=== PATIENT | female | born 1955 | race Caucasian/White ===

== ENCOUNTER 2018-10-21 11:01 | Day surgery (SDC) | payer OTHER ==
[~2018-10-21] VITALS: Ht 170.2 cm; Wt 72.9 kg
[~2018-10-21 11:01] MED LIST: AMLO5; AMLO5 PO; Aspir 8181 MG; Aspirin EC81 MG PO; CHOL10002; FISH OIL + D31 EACH; FISH OIL 1,2001 EACH PO; Hair, Skin & N1 EACH; LOSA50 PO; LOSARTAN POTAS100 MG PO; LOVA40; LOVA40 PO; MULTI VITAMIN1 EACH PO; VITAMIN D31000 UNIT PO
== END 2018-10-21 13:05 | disposition home or self-care (01) ==
LOC: ORSCSDS 11:01
PROVIDERS: Internal Medicine Gastroenterology
PROC: 0DBK8ZX Excision of Ascending Colon, Via Natural or Artificial Opening Endoscopic, Diagnostic (ICD-10-PCS; principal; 2018-10-21 12:15)
DX: Z12.11 Encounter for screening for malignant neoplasm of colon (principal); Z80.0 Family history of malignant neoplasm of digestive organs; D12.2 Benign neoplasm of ascending colon; K57.30 Diverticulosis of large intestine without perforation or abscess without bleeding; I10 Essential (primary) hypertension; E78.5 Hyperlipidemia, unspecified; Z79.899 Other long term (current) drug therapy; Z79.82 Long term (current) use of aspirin
CPT/HCPCS: 88305; J7120